=== PATIENT | female | born 1955 | race Caucasian/White ===

== ENCOUNTER 2016-10-04 09:37 | Emergency (ER) | payer BC ==
--- NOTE | 2016-10-04 09:54 | ED.PDOC ---
History of Present Illness - General Chief Complaint: Chest Pain/IL Stated Complaint: Chest pain Time Seen by Provider: 10/04/16 09:49 Source: patient Exam Limitations: no limitations - History of Present Illness Initial Comments: Mildred Bush 61 y/o female stated that she woke up early this am with throbbing left sided chest pains which had been constant since tis morning.Has sob ,felt queasy ,no diaphoresis.She denies heart disease but had cardiac cath 1 1/2 y ago in [facility] for irregular heartbeat. Timing/Duration: 4-6 hours Severity: moderate Location: central Activities at Onset: rest Prior Chest Pain/Cardiac Workup: cardiac cath Improving Factors: nothing Worsening Factors: nothing Nitro Today/Relief: no nitro taken today, 0.4 mg x 1, provided by ED Aspirin Treatment Today: no aspirin today, 325 mg x 1, provided by ED Associated Symptoms: shortness of breath Allergies/Adverse Reactions: Allergies Morphine Allergy (Verified 10/04/16 09:41) Other Causes itching Home Medications: Ambulatory Orders Aspirin [Aspirin Adult Low Dose] 81 mg PO DAILY #120 tab 10/04/16 Multiple Vitamin [Multi Vitamin] 1 tab PO DAILY 10/04/16 Nitroglycerin 0.4 mg SL Q5MIN #1 bottle 10/04/16 Simvastatin 20 mg PO BEDTIME #90 tab 10/04/16 Review of Systems - Review of Systems Constitutional: States: no symptoms reported EENTM: States: no symptoms reported Cardiology: States: see HPI Gastrointestinal/Abdominal: States: no symptoms reported Genitourinary: States: no symptoms reported Musculoskeletal: States: no symptoms reported Skin: States: no symptoms reported Neurological: States: no symptoms reported Endocrine: States: no symptoms reported Hematologic/Lymphatic: States: no symptoms reported Past Medical History (General) - Patient Medical History Hx Stroke: No Hx Congestive Heart Failure: No Hx Diabetes: No Hx Cancer: Yes - Breast CA Hx MRSA: No Surgical History: tonsillectomy, Hysterectomy, other - bilateral mastectomies, hysyterectomy, - Vaccination History Hx Influenza Vaccination: No - Social History Hx Tobacco Use: No Hx Depression: Yes Hx Physical Abuse: No Hx Emotional Abuse: No - Female History Patient is a Female of Child Bearing Age (10 -59 yrs old): No Family Medical History - Family History Mother Family History: Unknown Living Status: Unknown Hx Family Asthma: No Hx Family Congestive Heart Failure: No Hx Family Hypertension: No Hx Family Stroke: No Hx Family Cancer: Yes - dad-lung;mom-breast Physical Exam - Physical Exam General Appearance: Alert, Comfortable, No apparent distress Eyes, Ears, Nose, Throat Exam: PERRL/EOMI, normal ENT inspection, TMs normal Neck: non-tender, full range of motion, supple Respiratory: chest non-tender, lungs clear, no respiratory distress Cardiovascular/Chest: normal peripheral pulses, regular rate, rhythm, no edema, no murmur Peripheral Pulses: radial,right: 2+, radial,left: 2+ Gastrointestinal/Abdominal: normal bowel sounds, non tender, soft, no organomegaly Extremity: normal range of motion, non-tender, normal inspection, no calf tenderness Neurologic: no motor/sensory deficits, alert, normal mood/affect, oriented x 3 Skin Exam: normal color, warm/dry Lymphatic: no adenopathy Progress - Results/Orders Results/Orders: Previous EKG 11/04/13- left bundle branch block cardiac cath 08/11/2014-heart cath small caliber coronary arteries no stenoses or atheroma Vital Signs - 8 hr 10/04/16 10/04/16 09:38 09:39 Pulse Rate 73 Pulse Rate [ 76 Apical] Respiratory 24 Rate Blood Pressure 139/85 [Right Arm] O2 Sat by Pulse 98 Oximetry Vital Signs - 8 hr 10/04/16 10/04/16 10/04/16 09:38 09:39 10:10 Pulse Rate 73 Pulse Rate [ 76 74 Apical] Respiratory 24 20 Rate Blood Pressure 139/85 109/67 [Right Arm] O2 Sat by Pulse 98 98 Oximetry 10/04/16 10/04/16 10/04/16 10:15 10:35 11:16 Pulse Rate Pulse Rate [ 85 68 72 Apical] Respiratory 20 20 20 Rate Blood Pressure 105/53 79/51 92/56 [Right Arm] O2 Sat by Pulse 98 95 96 Oximetry 10/04/16 09:55 IV Care:Saline Lock per Protoc QSHIFT Telemetry .ONCE Sodium Chloride 0.9% (Flush) [Saline Flush Syringe] 10 ml IV PRN PRN EKG Stat Pulse Ox Stat 10/04/16 09:56 EKG Assessment ONCE Pulse Oximetry Assessment DAILY Laboratory Results WBC 8.3 K/mm3 (4.8-10.8) 10/04/16 09:55 RBC 4.81 M/mm3 (4.20-5.40) 10/04/16 09:55 Hgb 15.5 gm/dL (12.0-16.0) 10/04/16 09:55 Hct 46.4 % (36.0-47.0) 10/04/16 09:55 MCV 96.5 fl (81.0-99.0) 10/04/16 09:55 MCH 32.2 pg (27.0-31.0) H 10/04/16 09:55 MCHC 33.3 g/dL (33.0-37.0) 10/04/16 09:55 RDW 12.7 % (11.5-14.5) 10/04/16 09:55 Plt Count 312 K/mm3 (130-400) 10/04/16 09:55 MPV 8.5 fl (7.40-10.4) 10/04/16 09:55 Absolute Neuts (auto) 4.60 K/uL (1.8-6.8) 10/04/16 09:55 Absolute Lymphs (auto) 2.40 K/uL (1.0-3.4) 10/04/16 09:55 Absolute Monos (auto) 1.10 K/uL (0.2-0.8) H 10/04/16 09:55 Absolute Eos (auto) 0.10 K/uL (0.0-0.4) 10/04/16 09:55 Absolute Basos (auto) 0.10 K/uL (0.0-0.1) 10/04/16 09:55 Neutrophils % 56.3 % (42.0-78.0) 10/04/16 09:55 Lymphocytes % 28.9 % (20.0-50.0) 10/04/16 09:55 Monocytes % 13.2 % (2.0-9.0) H 10/04/16 09:55 Eosinophils % 0.8 % (1.0-5.0) L 10/04/16 09:55 Basophils % 0.8 % (0.0-2.0) 10/04/16 09:55 PT 10.7 SECONDS (9.4-12.5) 10/04/16 09:55 INR 0.950 10/04/16 09:55 PTT (SP) 33.4 SECONDS (25.1-36.5) 10/04/16 09:55 D-Dimer, Quantitative < 200 ng/mL (0-230) 10/04/16 09:55 Sodium 138 mmol/L (135-145) 10/04/16 09:55 Potassium 4.0 mmol/L (3.6-5.0) 10/04/16 09:55 Chloride 104 mmol/L (101-111) 10/04/16 09:55 Carbon Dioxide 29 mmol/L (21-31) 10/04/16 09:55 Anion Gap 9.0 (12-18) L 10/04/16 09:55 BUN 15 mg/dL (7-18) 10/04/16 09:55 Creatinine 0.82 mg/dL (0.6-1.3) 10/04/16 09:55 BUN/Creatinine Ratio 18.3 (10-20) 10/04/16 09:55 Random Glucose 97 mg/dL (70-105) 10/04/16 09:55 Serum Osmolality 276.4 mOsm/L (275-295) 10/04/16 09:55 Calcium 9.6 mg/dL (8.4-10.2) 10/04/16 09:55 Magnesium 2.1 mg/dL (1.8-2.5) 10/04/16 09:55 Total Bilirubin 0.7 mg/dL (0.2-1.0) 10/04/16 09:55 Direct Bilirubin < 0.1 mg/dL (0-0.2) 10/04/16 09:55 Indirect Bilirubin 0.6 mg/dL (0.2-0.8) 10/04/16 09:55 AST 24 IU/L (10-42) 10/04/16 09:55 ALT 16 IU/L (10-60) 10/04/16 09:55 Alkaline Phosphatase 54 IU/L (42-121) 10/04/16 09:55 Creatine Kinase 87 IU/L (26-140) 10/04/16 09:55 CK-MB (CK-2) 1.7 ng/mL (0.0-4.4) 10/04/16 09:55 CK-MB (CK-2) % Not Reportable 10/04/16 09:55 Troponin I < 0.02 ng/mL (0.01-0.05) 10/04/16 11:05 B-Natriuretic Peptide 7.7 pg/ml (0-100) 10/04/16 09:55 Serum Total Protein 7.3 gm/dL (6.4-8.2) 10/04/16 09:55 Albumin 4.2 g/dl (3.2-5.5) 10/04/16 09:55 #2 Troponin- normal Discuss test results with patient recommending 24 h obs but declined stating chest pain free wants to follow up with primary md - EKG/XRAY/CT EKG: LBBB, Unchanged from - 11/04/13 Comments: heart rate -88 XRAY: chest - no acute abnormalities/radiologist Departure - Departure Clinical Impression: Chest pain Qualifiers: Chest pain type: unspecified Qualified Code(s): R07.9 - Chest pain, unspecified Time of Disposition: 11:42 Disposition: Discharge to Home or Self Care Condition: Fair Departure Forms: ED Discharge - Pt. Copy, Patient Portal Self Enrollment Instructions: DI for Chest Pain Diet: low fat, low cholesterol Referrals: Ankit Garg MD [Primary Care Provider] - 1-2 Weeks Prescriptions: Nitroglycerin 0.4 mg SL Q5MIN #1 bottle Aspirin [Aspirin Adult Low Dose] 81 mg PO DAILY #120 tab Simvastatin 20 mg PO BEDTIME #90 tab Home Medications: Ambulatory Orders Aspirin [Aspirin Adult Low Dose] 81 mg PO DAILY #120 tab 10/04/16 Multiple Vitamin [Multi Vitamin] 1 tab PO DAILY 10/04/16 Nitroglycerin 0.4 mg SL Q5MIN #1 bottle 10/04/16 Simvastatin 20 mg PO BEDTIME #90 tab 10/04/16 Additional Instructions: Return to EMERGENCY ROOM NEEDED;Follow up with primary md 10/05/2016
[2016-10-04] MEDS ORDERED: SODIUM CHLORIDE 0.9% (FLUSH) 10 ML SYG IV PRN (09:55)
[2016-10-04] MEDS: NITROGLYCERIN 0.4 MG 25 EA TAB SL ONE (10:10)
[2016-10-04] MEDS: ONDANSETRON INJ 4 MG/2 ML VIAL IV ONE (10:10)
[2016-10-04] MEDS: ASPIRIN TABLET 325 MG TAB PO ONE (10:10)
--- NOTE | 2016-10-04 10:25 | RAD ---
EXAM DESCRIPTION: Chest,1 View CLINICAL HISTORY: pain chest pain COMPARISON: None. IMPRESSION: Single AP portable upright view of the chest shows cardiac silhouette and pulmonary vasculature to be within normal limits. Lungs are normally aerated and clear. No obvious pleural effusion or pneumothorax is seen. Electronically signed by: Sandor Thao MD 10/04/2016 10:24 AM CDT
[2016-10-04] MEDS: NITROGLYCERIN 0.4 MG/HR PATCH TOP ONE (10:38)
[2016-10-04 11:51] VITALS: BP 84/54; O2SAT 97
[2016-10-04 12:02] VITALS: TEMP 97
== END 2016-10-04 12:02 | disposition home or self-care (01) ==
LOC: ER 09:37
DX: R07.9 Chest pain, unspecified (principal); I44.7 Left bundle-branch block, unspecified; Z85.3 Personal history of malignant neoplasm of breast; Z90.13 Acquired absence of bilateral breasts and nipples; F32.9 Major depressive disorder, single episode, unspecified; Z79.82 Long term (current) use of aspirin; Z79.899 Other long term (current) drug therapy
CPT/HCPCS: 36415; 71010; 80048; 80076; 82550; 82553; 83880; 84484; 85025; 85379; 85610; 85730; J2405

== ENCOUNTER → 2017-08-29 | Outpatient (CLI) | payer BC ==
--- NOTE | 2017-08-29 15:07 | RAD ---
EXAM DESCRIPTION: Barium Swallow: Rad-Fluoroscopy. CLINICAL HISTORY: R1314 DYSPHAGIA. Increases when eating and when lying down. COMPARISON: None TECHNIQUE: Preliminary AP loss prevention associate radiograph. The patient swallowed barium pill with water. The patient swallowed gas-producing granules, water, and heavy density barium under fluoroscopic visualization. The images were obtained with the patient standing and horizontal. Patient drank medium density barium through a straw in the semi-prone position. 84 fluoroscopic cine loop images. 9 static fluoroscopic images. Total fluoroscopy time was 3.1 minutes.. DAP: 56.1 mGy. FINDINGS: Sales And Marketing Director image shows an endo-esophageal camera on the anterior wall of the distal esophagus. Patient required several swallows of water to wash the barium pill into the stomach. The pill was momentarily suspended on the camera. The swallowing mechanism was grossly normal. The patient had to swallow 2 times with each mouthful. No laryngeal aspiration. Primary peristaltic wave extends almost to the gastroesophageal junction. Minimal delay in contrast passage through the junction. Gas reflux is noted in the upright and horizontal position. No mass effect. Small sliding hiatal hernia. No mucosal abnormality. Unable to elicit barium reflux with patient supine utilizing Valsalva and coughing maneuvers. No gross mucosal abnormality or mass effect on the stomach. IMPRESSION: 1. Swallowing mechanism grossly normal except patient required 2 swallows for each mouthful of contrast. 2. Primary peristaltic wave is incomplete at the distal esophagus with gas reflux standing and horizontal positions. Cannot elicit barium reflux with maneuvers in the supine position. Small sliding hiatal hernia. 3. No mucosal lesions in the distal esophagus and no mass effect. Electronically signed by: Piter Hayes MD 08/29/2017 3:06 PM CDT
== END ==
LOC: RAD 08:27
DX: R13.14 Dysphagia, pharyngoesophageal phase (principal); K21.0 Gastro-esophageal reflux disease with esophagitis; K92.2 Gastrointestinal hemorrhage, unspecified

== ENCOUNTER → 2017-09-11 | Outpatient (CLI) | payer BC ==
--- NOTE | 2017-09-11 14:12 | US ---
EXAM DESCRIPTION: Abdomen,Complete CLINICAL HISTORY: EPIGASTRIC PAIN COMPARISON: None. TECHNIQUE: Real-time sonographic images of the abdomen are obtained. FINDINGS: Pancreas is unremarkable. The right lobe of the liver measures 13.8 cm. The liver is diffusely homogeneous and normal in echogenicity. No focal hepatic mass is seen. The gallbladder is normally distended and free of abnormal internal echogenicities. No gallbladder wall thickening or pericholecystic fluid is seen. The common bile duct measures 3-4 mm in greatest diameter. The right kidney measures 8.4 x 3.5 x 4.2 cm. The left kidney measures 8.6 x 5.1 x 4.7 cm The bilateral kidneys show normal renal cortical echogenicity. No hydronephrosis is seen. The spleen measures 8.3 cm. Visualized IVC and abdominal aorta are within normal limits. IMPRESSION: Unremarkable ultrasound of the abdomen. Electronically signed by: Sandor Thao MD 09/11/2017 2:11 PM CDT
== END ==
LOC: US 08:16
PROVIDERS: ATTEND Surgery
DX: R10.13 Epigastric pain (principal)